=== PATIENT | male | born 1960 | race Caucasian/White ===

== ENCOUNTER 2022-12-05 10:24 | Emergency (ER) | payer OTHER ==
[2022-12-05 11:26] LABS: BASOPHILS # (AUTO) 0.1 10^3/uL (0.0-0.1); BASOPHILS % (AUTO) 1.3 %; EOSINOPHILS # (AUTO) 0.2 10^3/uL (0.0-0.7); EOSINOPHILS % (AUTO) 4.2 %; HCT - HEMATOCRIT 49.2 % (42.0-52.0); HGB - HEMOGLOBIN 16.3 g/dL (14.0-18.0); LYMPHOCYTES # (AUTO) 1.5 10^3/uL (1.5-3.5); LYMPHOCYTES % (AUTO) 27.4 %; MEAN CORPUSCULAR HGB CONC 33.1 g/dL (32.0-36.0); MEAN CORPUSCULAR VOLUME 90.4 fL (80.0-94.0); MEAN PLATELET VOLUME 11.4 fL (7.4-11.4); MONOCYTES # (AUTO) 0.3 10^3/uL (0.0-1.0); MONOCYTES % (AUTO) 6.1 %; NEUTROPHILS # (AUTO) 3.3 10^3/uL (1.5-6.6); NEUTROPHILS % (AUTO) 60.8 %; PLT - PLATELET COUNT 171 10^3/uL (130-450); RED BLOOD COUNT 5.44 10^6/uL (4.70-6.10); RED CELL DISTRIBUTION WIDTH 12.5 % (12.0-15.0); WHITE BLOOD COUNT 5.4 x10^3/uL (4.8-10.8)
--- NOTE | 2022-12-05 11:28 | XRAY Report ---
PROCEDURE: Chest 1 View X-Ray INDICATIONS: Chest pain TECHNIQUE: One view of the chest was acquired. COMPARISON: None. FINDINGS: Surgical changes and devices: None. Lungs and pleura: No pleural effusions or pneumothorax. Lungs are clear. Mediastinum: Mediastinal contours appear normal. Heart size is normal. Bones and chest wall: No suspicious bony lesions. Overlying soft tissues appear unremarkable. IMPRESSION: No acute radiographic abnormality on this single view radiograph. Reviewed by: Yan Banerjee MD on 12/05/2022 11:27 AM PDT Approved by: Yan Banerjee MD on 12/05/2022 11:27 AM PDT Station ID: [id number]
[2022-12-05 11:38] LABS: ALBUMIN 4.3 g/dL (3.2-5.5); ALBUMIN/GLOBULIN RATIO 1.5 (1.0-2.2); BILIRUBIN,TOTAL 0.6 mg/dL (0.2-1.0); CALCIUM 9.3 mg/dL (8.5-10.3); CREATININE 0.8 mg/dL (0.6-1.2); POTASSIUM 4.1 mmol/L (3.5-5.0); TOTAL PROTEIN 7.1 g/dL (6.7-8.2)
--- NOTE | 2022-12-05 12:08 | ED Physician Documentation ---
History of Present Illness - Stated complaint Stated Complaint: BP IS HIGH - Chief complaint Chief Complaint: Cardiac - Additonal information Additional information: 62-year-old male presents emergency department for evaluation of chest gisela estion, elevated blood pressure and feeling generally unwell. Reports that he was yesterday just feeling malaise and tired. He did check his blood pressure and found that it was nearly 160 systolic. This alarmed him. He is also been dealing with some mild cough and congestion perhaps seasonal allergies. He does have a history of hypertension. However he was weaned off the lisinopril about 18 months ago as it was causing exertional hypotension. He also has a remote history of diabetes but his metformin was stopped about 18 months ago as his A1c was under 6 and he had lost weight with diet and exercise. Non-smoker. Denies chest pain or shortness of air. No leg swelling. No fevers. Review of Systems Constitutional: reports: Fatigue Eyes: reports: Reviewed and negative Ears: reports: Reviewed and negative Nose: reports: Reviewed and negative Throat: reports: Reviewed and negative Cardiac: reports: Chest pain / pressure. denies: Palpitations, Pedal edema, Calf pain Respiratory: reports: Reviewed and negative GI: reports: Reviewed and negative : reports: Reviewed and negative PD PAST MEDICAL HISTORY - Present Medications Home Medications: Ambulatory Orders Medication Instructions Recorded Confirmed Rosuvastatin Calcium [Crestor] 10 mg PO DAILY 12/05/22 12/05/22 metFORMIN [Glucophage] 500 mg PO ONCE 12/05/22 12/05/22 - Allergies Allergies/Adverse Reactions: Allergies Allergy/AdvReac Type Severity Reaction Status Date / Time acetaminophen [From Tylenol] Allergy Unknown Verified 12/05/22 10:39 ibuprofen Allergy Unknown Verified 12/05/22 10:39 PD ED PE NORMAL - General General: Alert and oriented X 3, No acute distress, Well developed/nourished - HEENT HEENT: Atraumatic, Moist mucous membranes - Neck Neck: Supple, no meningeal sign, No adenopathy - Cardiac Cardiac: RRR, No murmur - Respiratory Respiratory: No respiratory distress, Clear bilaterally - Abdomen Abdomen: Normal bowel sounds, Soft - Derm Derm: Normal color, Warm and dry, No rash - Neuro Neuro: Alert and oriented X 3, 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 Relevant findings are: Rate: Rate (enter#) (56) Rhythm: NSR Brickeys: Normal QRS: Poor R wave progression Ischemia: Normal ST segments Compare to prior EKG: Old EKG unavailable Computer interpretation: Agree with computer - Labs Labs: Laboratory Tests 12/05/22 12/05/22 12/05/22 11:19 11:19 11:19 WBC 5.4 RBC 5.44 Hgb 16.3 Hct 49.2 MCV 90.4 MCH 30.0 MCHC 33.1 RDW 12.5 Plt Count 171 MPV 11.4 Neut # (Auto) 3.3 Lymph # (Auto) 1.5 [place] # (Auto) 0.3 Eos # (Auto) 0.2 Baso # (Auto) 0.1 Absolute Nucleated RBC 0.00 Nucleated RBC % 0.0 Sodium 141 Potassium 4.1 Chloride 100 L Carbon Dioxide 30 Anion Gap 11.0 BUN 14 Creatinine 0.8 Estimated GFR (MDRD) 98 Glucose 104 H Calcium 9.3 Total Bilirubin 0.6 AST 26 ALT 30 Alkaline Phosphatase 47 Troponin I High Sens 3.6 B-Natriuretic Peptide Total Protein 7.1 Albumin 4.3 Globulin 2.8 Albumin/Globulin Ratio 1.5 Lipase 40 12/05/22 11:19 WBC RBC Hgb Hct MCV MCH MCHC RDW Plt Count MPV Neut # (Auto) Lymph # (Auto) [facility] # (Auto) Eos # (Auto) Baso # (Auto) Absolute Nucleated RBC Nucleated RBC % Sodium Potassium Chloride Carbon Dioxide Anion Gap BUN Creatinine Estimated GFR (MDRD) Glucose Calcium Total Bilirubin AST ALT Alkaline Phosphatase Troponin I High Sens B-Natriuretic Peptide 34 Total Protein Albumin Globulin Albumin/Globulin Ratio Lipase - Rads (name of study) cxr Relevant Findings:: Final report received (No acute radiographic abnormality on single view radiograph) Departure - Departure Disposition: 01 Home, Self Care Clinical Impression: Elevated blood pressure reading Condition: Stable Record reviewed to determine appropriate education?: Yes Comments: Alex quintero are seen today in the emergency department because yesterday you are feeling some general malaise, feeling unwell and noted that your blood pressures were elevated. You do have a history of hypertension but weaned off medication about a year and a half ago. Your blood pressures are elevated here in the ER. Your chest x-ray is normal and shows no signs of pneumonia, pneumothorax or pleural effusion. Your EKG did not show signs of a heart attack. Your labs today were also essentially normal. It is possible that you are dealing with congestion and allergies as a cause of some of your discomfort. I recommend that you continue your allergy medications. I also recommend that you begin taking your blood pressure at the same time every day after you have been sitting with your arm on a table for 5 minutes. Keep a record of these blood pressures. If they are consistently higher than 140/90 it would be appropriate to talk with your primary doctor about instituting blood pressure medications again perhaps a lower dose of lisinopril. Return to the ER should you develop any sudden severe chest pain, have fainting episodes or severe shortness of air
[2022-12-05 12:42] VITALS: BP 122/66
== END 2022-12-05 12:59 | disposition home or self-care (01) ==
LOC: ED 10:24
DX: R03.0 Elevated blood-pressure reading, without diagnosis of hypertension (principal)
CPT/HCPCS: 36415; 80053; 83690; 83880; 84484; 85025; 93005; 99283; 99284

== ENCOUNTER 2023-06-09 16:46 | Emergency (ER) | payer OTHER ==
[2023-06-09 17:10] VITALS: BP 165/74; O2SAT 96
--- NOTE | 2023-06-09 17:44 | ED Physician Documentation ---
History of Present Illness - Stated complaint Stated Complaint: R CALF PX - Chief complaint Chief Complaint: General - History obtained from History obtained from: Patient - History of Present Illness Timing: Today Pain level max: 2 Pain level now: 1 - Additonal information Additional information: Patient is a 63-year-old male who presents to the emergency department with right calf pain that started today. He states he had some tingling in the calf as well. Nothing seemed to make it better or worse but he felt like his right leg was cooler from the knee down earlier today, seems to be normal in temperature now. He states it feels like there is a cramp in his leg. He states he noticed the cramping sensation while he was on a hike today. No fevers. No chills. No cough. No congestion. Does not smoke. No history of peripheral vascular disease that he is aware of. Review of Systems Constitutional: denies: Fever, Chills Respiratory: denies: Cough GI: denies: Nausea, Vomiting, Diarrhea Skin: denies: Rash Musculoskeletal: denies: Neck pain, Back pain Neurologic: denies: Focal weakness, Numbness, Headache PD PAST MEDICAL HISTORY - Past Medical History Past Medical History: Yes Cardiovascular: Hypertension, High cholesterol - Past Surgical History Past Surgical History: Yes Ortho: Rotator cuff repair Derm: Skin grafts - Present Medications Home Medications: Ambulatory Orders Medication Instructions Recorded Confirmed Rosuvastatin Calcium [Crestor] 10 mg PO DAILY 12/05/22 12/05/22 metFORMIN [Glucophage] 500 mg PO ONCE 12/05/22 12/05/22 - Allergies Allergies/Adverse Reactions: Allergies Allergy/AdvReac Type Severity Reaction Status Date / Time acetaminophen [From Tylenol] Allergy Unknown Verified 12/05/22 10:39 ibuprofen Allergy Unknown Verified 12/05/22 10:39 - Social History Does the pt smoke?: No Smoking Status: Never smoker PD ED PE NORMAL - Vitals Vital signs reviewed: Yes - General General: Alert and oriented X 3, No acute distress - HEENT HEENT: PERRL, Moist mucous membranes - Neck Neck: Supple, no meningeal sign - Cardiac Cardiac: RRR, Strong equal pulses - Respiratory Respiratory: No respiratory distress, Clear bilaterally - Abdomen Abdomen: Soft, Non tender, Non distended - Derm Derm: Warm and dry - Extremities Extremities: No edema, No calf tenderness / cord, Other (Brisk cap refill in all the toes. Normal DP and PT pulses. Legs have equal warmth. No redness. No significant swelling.) - Neuro Neuro: Alert and oriented X 3 - Psych Psych: Normal mood, Normal affect Results - Vitals Vitals: Vital Signs - 24 hr 06/09/23 17:04 Temperature 36.3 C L Heart Rate 63 Respiratory 20 Rate Blood Pressure 165/74 H O2 Saturation 96 Oxygen O2 Source Room air - Labs Labs: Laboratory Tests 06/09/23 06/09/23 18:19 18:19 WBC 7.1 RBC 5.44 Hgb 16.2 Hct 48.3 MCV 88.8 MCH 29.8 MCHC 33.5 RDW 13.1 Plt Count 179 MPV 11.6 H Neut # (Auto) 4.4 Lymph # (Auto) 2.0 [place] # (Auto) 0.4 Eos # (Auto) 0.2 Baso # (Auto) 0.1 Absolute Nucleated RBC 0.00 Nucleated RBC % 0.0 Sodium 138 Potassium 3.6 Chloride 103 Carbon Dioxide 27 Anion Gap 8.0 BUN 19 Creatinine 1.0 Estimated GFR (MDRD) 75 L Glucose 156 H Calcium 9.7 Phosphorus 3.7 Magnesium 1.8 Total Bilirubin 0.4 AST 25 ALT 32 Alkaline Phosphatase 59 Total Protein 6.7 Albumin 4.5 Globulin 2.2 Albumin/Globulin Ratio 2.0 - Rads (name of study) Duplex ultrasound right lower extremity Relevant Findings:: Final report received, See rad report PD Medical Decision Making - ED course Complexity details: reviewed results, re-evaluated patient, considered differential, d/w patient ED course: 63-year-old male presents to the emergency department with right lower extremity pain, feels like a muscle cramp. No acute findings on ultrasound. Because of the cramping sensation blood work was ordered, no significant lab abnormalities that would cause his cramping. Ambulating well in the emergency department. No evidence of acute arterial occlusion. Normal pulses. Brisk cap refill. We will continue supportive care and reevaluate if he fails to improve in the next few days. Patient counseled regarding signs and symptoms for which I believe and urgent re-evaluation would be necessary. Patient with good understanding of and agreement to plan and is comfortable going home at this time This document was made in part using voice recognition software. While efforts are made to proofread this document, sound alike and grammatical errors may occur. Departure - Departure Disposition: 01 Home, Self Care Clinical Impression: Calf pain Qualifiers: Laterality: right Qualified Code(s): M79.661 - Pain in right lower leg Condition: Good Instructions: ED Muscle Pain Leg Cramps Follow-Up: SHARON RAVI MD [Primary Care Provider] - Within 1 week Comments: Your ultrasound and laboratory testing did not show any acute abnormalities. Please follow-up with your doctor for further care. Please return if you worsen. There is no evidence of blood clot in your leg. Continue to gently stretch your leg at home. Forms: PCP List Discharge Date/Time: 06/09/23 19:00
[2023-06-09 18:25] LABS: BASOPHILS # (AUTO) 0.1 10^3/uL (0.0-0.1); EOSINOPHILS # (AUTO) 0.2 10^3/uL (0.0-0.7); EOSINOPHILS % (AUTO) 2.7 %; HCT - HEMATOCRIT 48.3 % (42.0-52.0); HGB - HEMOGLOBIN 16.2 g/dL (14.0-18.0); LYMPHOCYTES % (AUTO) 27.9 %; MEAN CORPUSCULAR HEMOGLOBIN 29.8 pg (27.0-31.0); MEAN CORPUSCULAR HGB CONC 33.5 g/dL (32.0-36.0); MEAN CORPUSCULAR VOLUME 88.8 fL (80.0-94.0); MEAN PLATELET VOLUME 11.6 fL (7.4-11.4); MONOCYTES # (AUTO) 0.4 10^3/uL (0.0-1.0); MONOCYTES % (AUTO) 5.8 %; NEUTROPHILS # (AUTO) 4.4 10^3/uL (1.5-6.6); NEUTROPHILS % (AUTO) 62.3 %; PLT - PLATELET COUNT 179 10^3/uL (130-450); RED BLOOD COUNT 5.44 10^6/uL (4.70-6.10); RED CELL DISTRIBUTION WIDTH 13.1 % (12.0-15.0); WHITE BLOOD COUNT 7.1 x10^3/uL (4.8-10.8)
[2023-06-09 18:43] LABS: ALBUMIN 4.5 g/dL (3.2-5.5); BILIRUBIN,TOTAL 0.4 mg/dL (0.2-1.0); CALCIUM 9.7 mg/dL (8.5-10.3); MAGNESIUM 1.8 mg/dL (1.7-2.3); PHOSPHORUS 3.7 mg/dL (2.5-5.0); POTASSIUM 3.6 mmol/L (3.5-4.5); TOTAL PROTEIN 6.7 g/dL (6.4-8.9)
--- NOTE | 2023-06-09 18:51 | Ultrasound Report ---
PROCEDURE: Duplex Ext Veins Right INDICATIONS: R calf pain TECHNIQUE: Real-time imaging, as well as color and pulse Doppler interrogation, were performed of th e lower extremity deep veins from the inguinal ligament to the popliteal fossa. Attempted visualizati on of the calf veins was performed. COMPARISON: None. FINDINGS: The deep veins are normally compressible, and free of intraluminal thrombus. Color and pu lse Doppler demonstrate normal phasic intraluminal flow. There is normal augmentation response to di stal compression maneuver. IMPRESSION: No deep venous thrombosis of the visualized lower extremity. Reviewed by: Pedro Rivers MD on 06/09/2023 5:50 PM [place] Approved by: Pedro Rivers MD on 06/09/2023 5:50 PM [place] Station ID: [id number]
== END 2023-06-09 19:00 | disposition home or self-care (01) ==
LOC: ED 16:46
DX: M79.661 Pain in right lower leg (principal)
CPT/HCPCS: 36415; 80053; 83735; 84100; 85025; 99283; 99284

== ENCOUNTER 2023-09-08 07:00 | Outpatient (CLI) | payer OTHER ==
--- NOTE | 2023-09-10 11:15 | MRI Report ---
PROCEDURE: Lower Leg (Tib-Fib) RT WO INDICATIONS: RIGHT CALF PAIN TECHNIQUE: Noncontrast coronal and sagittal T1 spin echo and STIR; axial T1 spin echo and T2 fast spin echo with fat saturation through the right lower leg. COMPARISON: None. FINDINGS: Image quality: Excellent. Bones: The visualized bone marrow demonstrates normal signal on all sequences. The overlying cortex appears intact. No fractures lines or intra-osseous lesions. Soft tissues: There is mild edema involving inferior aspect of medial head gastrocnemius muscle and m edial portion of distal soleus muscle extending to musculotendinous junction.. No other muscle signal abnormality is seen. Subcutaneous tissues appear normal as well. No soft tissue masses are present. IMPRESSION: 1. Low-grade muscle strain involving distal portion of medial head gastrocnemius muscle and medial po rtion of distal soleus muscle extending to musculotendinous junction. No other muscle or tendon signa l abnormality. No discrete soft tissue mass or drainable fluid collection. 2. No marrow edema. No fracture or dislocation. No suspicious bony lesions. No abnormal tibial stress reaction. Reviewed by: Jagjit Echavarria MD on 09/10/2023 11:14 AM PST Approved by: Jagjit Echavarria MD on 09/10/2023 11:14 AM PST Station ID: [id number]
== END 2023-09-08 07:01 | disposition home or self-care (01) ==
LOC: DI 07:00
PROVIDERS: ATTEND Registered Nurse
DX: S86.811A Strain of other muscle(s) and tendon(s) at lower leg level, right leg, initial encounter (principal)

== ENCOUNTER 2024-04-03 08:00 | Outpatient (CLI) | payer OTHER ==
--- NOTE | 2024-04-03 16:29 | XRAY Report ---
PROCEDURE: Shoulder 2+V RT INDICATIONS: RIGHT SHOULDER PAIN TECHNIQUE: 3 views of the shoulder were acquired. COMPARISON: None. FINDINGS: Diffuse osseous demineralization. No fracture or dislocation. Inferior pseudosubluxation of the humer al head relative to the glenoid, likely secondary to a large joint effusion. Small intra-articular pierre dies at the axillary recess. Mild glenohumeral and acromioclavicular osteoarthritis. The visualized r ight hemithorax is within normal limits. IMPRESSION: 1.Likely large joint effusion with intra-articular bodies. 2.Mild glenohumeral and acromioclavicular osteoarthritis. Reviewed by: Benoit Price MD on 04/03/2024 4:28 PM PDT Approved by: Benoit Price MD on 04/03/2024 4:28 PM PDT Station ID: [id number]
== END 2024-04-03 23:59 | disposition home or self-care (01) ==
LOC: DI.S 08:00
PROVIDERS: ATTEND Physician Assistant
DX: M19.011 Primary osteoarthritis, right shoulder (principal)

== ENCOUNTER 2024-04-17 07:00 | Outpatient (CLI) | payer OTHER ==
--- NOTE | 2024-04-17 15:45 | MRI Report ---
Shoulder RT WO CLINICAL HISTORY: 64 years of age, Male, R SHOULDER IMPINGEMENT. Comparison: No priors available Technique: Multiplanar, multisequence MRI of the right shoulder was performed without intravenous co ntrast. IV Contrast: Not Administered. Findings: Osseous acromial outlet: Mild degenerative changes of the acromioclavicular joint. Type II acromion. No os acromiale. Trace subacromial/subdeltoid bursitis. Rotator cuff muscles and tendons: Severe tendinosis of the supraspinatus with bursal sided fraying. M ild tendinosis of the infraspinatus, without tear. Teres minor is unremarkable. Moderate tendinosis o f the subscapularis without tear. Muscles are intact without evidence of atrophy or edema. Labral and capsular structures: Superior labral tear, extending anteriorly to the anterior labrum. Thickening of the inferior glenohumeral ligament, with the obscuration of fat at the rotator interval , which can be seen in the setting of adhesive capsulitis. Biceps tendon and anchor: Moderate tenosynovitis of the extra-articular biceps tendon. Partial thickn ess tear of the proximal extra-articular biceps tendon. Severe tendinosis of the intra-articular franc ps tendon. Osseous and cartilaginous structures: Mild subchondral cystic changes in the posterior aspect of the greater tuberosity, reactive. Small T2 hyperintensity in the superior glenoid, favoring degenerative. No focal chondral defect of the glenohumeral joint. Miscellaneous: Small glenohumeral effusion with synovitis. Moderate subcoracoid bursitis. No intra- articular bodies. The remaining muscles are normal in bulk without evidence of atrophy or edema. IMPRESSION: 1.Mild degenerative changes of the acromioclavicular joint. 2.Severe tendinosis of the supraspinatus with bursal sided fraying. 3.Moderate tendinosis of the subscapularis without tear. 4.Moderate tenosynovitis of the extra-articular biceps tendon with partial-thickness tear. Severe ten dinosis of the intra-articular biceps tendon. 5.Findings suggestive of adhesive capsulitis. 6.Small glenohumeral effusion with synovitis. Moderate subcoracoid bursitis. Reviewed by: Ameena Figueroa MD on 04/17/2024 3:44 PM PDT Approved by: Ameena Figueroa MD on 04/17/2024 3:44 PM PDT Station ID: [id number]
== END 2024-04-17 07:01 | disposition home or self-care (01) ==
LOC: DI 07:00
PROVIDERS: ATTEND Physician Assistant
DX: M19.011 Primary osteoarthritis, right shoulder (principal); M75.91 Shoulder lesion, unspecified, right shoulder